=== PATIENT | male | born 1985 | race Caucasian/White ===

== ENCOUNTER 2017-08-13 18:07 | Emergency (ER) | payer OTHER, SELFPAY ==
[2017-08-13 18:09] VITALS: BP 157/93; PULSE 105; RESP 16; TEMP 37.1; O2SAT 98; BMI 36.9
[2017-08-13 18:28] LABS: Absolute Lymphocyte Count 3.05 X10^3/ul (0.83-4.51); Absolute Neutrophil Count 6.1 X10^3/uL (2.0-7.7); Basophil# 0.03 X10^3/uL; Basophil% 0.3 % (0-1); Hematocrit 44.2 % (40-54); Lymphocyte # 3.05 X10^3/ul (4.0); Mean Corp Hgb Conc 33.9 g/gl (32-36); Mean Corpuscular Hgb 30.4 pg (27.0-32.0); Mean Corpuscular Volume 89.5 fL (80-94); Mean Platelet Vol. 8.7 fl (6.2-12.0); Monocyte% 7.9 % (0-10); Neutrophil # 6.06 X10^3/uL (2.7-7.7); Neutrophil % 59.5 % (47-70); Platelet Count 343 K/mm3 (150-450); RBC Distribution Width SD 42.2 fl (35.1-43.9); Red Blood Count 4.94 M/mm3 (4.6-6.2); White Blood Count 10.2 K/mm3 (4.4-11.0)
[2017-08-13 18:29] LABS: POSITIVE COUNT NO; POSITIVE DIFFERENTIAL NO; POSITIVE MORPHOLOGY NO
[2017-08-13 18:39] LABS: Anion Gap 7 (5-15); BUN 16 mg/dL (7-18); BUN/Creat Ratio 14.2 RATIO (10-20); Calcium,Total 9.4 mg/dL (8.5-10.1); Chloride 103 mmol/L (98-107); Creatinine, Serum 1.13 mg/dL (0.70-1.30); EST Glomerular Filtration Rate 80 mL/min (>60); Est Glom Filt Rate - Afr Amer 97 mL/min (>60); Estimated Creatinine Clearance 107.04 ml/min; Glucose 110 mg/dL (74-106); Potassium 3.9 mmol/L (3.5-5.1); Sodium Level 138 mmol/L (136-145)
[2017-08-13 19:17] LABS: Amphetamine Urine VISTA NEGATIVE (<1000 ng/mL); Barbiturate Urine VISTA NEGATIVE (< 200 ng/mL); Benzodiazepine Urine VISTA NEGATIVE (< 200 ng/mL); Cocaine Urine VISTA NEGATIVE (< 300 ng/mL); Ecstacy Urine VISTA NEGATIVE (< 500 ng/mL); Methadone Urine VISTA NEGATIVE (< 300 ng/mL); PCP Urine VISTA NEGATIVE (< 25 ng/mL); THC Urine VISTA NEGATIVE (< 50 ng/mL); Vista UDS pH Range 6
[2017-08-13 19:24] VITALS: BP 142/85; PULSE 95; RESP 14; O2SAT 99
[2017-08-13 19:24] LABS: Alcohol, Blood (Medical)-Serum < 3.0 mg/dL
[2017-08-13 20:53] VITALS: BP 141/78; PULSE 93; RESP 14; O2SAT 99
[2017-08-13 21:04] VITALS: BP 148/78; PULSE 92; RESP 14; O2SAT 99
[2017-08-13 22:48] VITALS: BP 135/78; PULSE 95; RESP 14; O2SAT 99
[2017-08-13 23:28] VITALS: RESP 16
[2017-08-14 00:30] VITALS: RESP 16
--- NOTE | 2017-08-14 00:57 | ED.VISSUMM ---
- ER Visit Summary Date of Service: 08/14/17 Chief Complaint: [Suicidal ideations] History of Present Illness: The patient is a 31 M [who presents the emergency department with suicidal ideations. They started today. They are related to family and money. When pressed if some significant event happened he states that she just everything. He did call the crisis line who referred him to the emergency department. He states that he is suicidal but he did not have a plan. He was trying to think of one. He does have multiple suicide attempts in the past. The last one was in December when he tried to overdose on Paxil and cough medicine. He has not been on [place]al licks for the last month for his depression. He does smoke and uses marijuana.] Physical Examination: [] WN WD NAD PERRL EOMI MMM NECK supple and nontender, no masses RRR no murmur rub or gallop, no peripheral edema, symmetric radial pulses CTAB no respiratory distress ABDOMEN is soft and nontender, normal bowel sounds, no distension, no rebound or guarding SKIN is warm and dry no rashes Alert and Oriented x3, CN II-XII in tact, no motor or sensory deficits, gait normal No lymphadenopathy Flat affect endorsing suicidal ideations without clear plan. Poverty of speech no delusions agitation or flight of ideas no homicidal thoughts Test Results: [] Emergency Department Course and Treatment: [Medical clearance blood work was obtained and was unremarkable. Mental health was consulted to evaluate the patient in the emergency department. Disposition is pending mental health evaluation.] Treatment Plan: [] Disposition: [] Impression: [] This note was generated with [employer] dictation software. It may contain incorrect words, spelling, and punctuation that were not noted in review of the chart prior to signing ED Disposition - Plan for ED Patient: Chief Complaint: Suicidal Referrals: Trinidad Dickens MD [Primary Care Provider] -
[2017-08-14 02:32] VITALS: RESP 14
--- NOTE | 2017-08-14 02:48 | ED.DEP ---
ED Disposition - Plan for ED Patient: Disposition: Home or Assisted Living Chief Complaint: Suicidal Instructions: ED Depression Referrals: Trinidad Dickens MD [Primary Care Provider] - Additional Instructions: Please keep your appointment with the Crisis Counselor on Friday as scheduled. Keep your appointment with your therapist next week as scheduled. If you have any worsening of your condition or any new concerning symptoms, please return immediately to the emergency department for another evaluation.
[2017-08-14 03:36] VITALS: BP 124/71; PULSE 78; RESP 16; O2SAT 97
== END 2017-08-14 03:37 | disposition home or self-care (01) ==
PROVIDERS: Emergency Provider Emergency Medicine; Family Provider Family Medicine; PCP Family Medicine
DX: R45.851 Suicidal ideations (principal); F32.9 Major depressive disorder, single episode, unspecified; F12.90 Cannabis use, unspecified, uncomplicated; F17.200 Nicotine dependence, unspecified, uncomplicated; Z91.5 Personal history of self-harm
CPT/HCPCS: 36415; 80048; 80307; 80320; 85025; 99283; G0480

== ENCOUNTER → 2018-05-01 07:44 | Outpatient (CLI) | payer OTHER, SELFPAY ==
[2018-05-01 09:26] LABS: Absolute Lymphocyte Count 1.98 X10^3/ul (0.83-4.51); Absolute Neutrophil Count 3.4 X10^3/uL (2.0-7.7); Basophil# 0.03 X10^3/uL; Basophil% 0.5 % (0-1); Eosinophil# 0.24 X10^3/uL; Eosinophils% 3.8 % (0-5); Hematocrit 45.6 % (40-54); Hemoglobin 14.9 g/dl (13.0-16.5); Lymphocyte # 1.98 X10^3/ul (4.0); Lymphocyte % 31.7 % (19-41); Mean Corp Hgb Conc 32.7 g/gl (32-36); Mean Corpuscular Hgb 29.1 pg (27.0-32.0); Mean Corpuscular Volume 89.1 fL (80-94); Mean Platelet Vol. 10.3 fl (6.2-12.0); Monocyte# 0.62 X10^3/uL; Monocyte% 9.9 % (0-10); Neutrophil # 3.37 X10^3/uL (2.7-7.7); Neutrophil % 53.9 % (47-70); Platelet Count 347 K/mm3 (150-450); RBC Distribution Width CV 13.6 % (11.6-14.6); Red Blood Count 5.12 M/mm3 (4.6-6.2); White Blood Count 6.3 K/mm3 (4.4-11.0)
[2018-05-01 09:28] LABS: POSITIVE COUNT NO; POSITIVE DIFFERENTIAL NO; POSITIVE MORPHOLOGY NO
[2018-05-01 09:52] LABS: Hemoglobin A1c 5.2 % (4.2-6.3)
[2018-05-01 09:58] LABS: ALB/GLOB Ratio 1.1 RATIO (0.9-2.4); AST(SGOT) 21 U/L (15-37); Alanine Aminotransfer ALT/SGPT 41 U/L (16-61); Albumin, Serum 3.8 g/dL (3.2-5.0); Alkaline Phosphatase 95 U/L (45-117); Anion Gap 10 (5-15); BUN 16 mg/dL (7-18); BUN/Creat Ratio 15.7 RATIO (10-20); Calcium,Total 8.6 mg/dL (8.5-10.1); Chloride 104 mmol/L (98-107); Cholesterol 185 mg/dL (200); Creatinine, Serum 1.02 mg/dL (0.70-1.30); EST Glomerular Filtration Rate 90 mL/min (>60); Est Glom Filt Rate - Afr Amer 109 mL/min (>60); Globulin 3.6 g/dL (2.2-4.2); Glucose 94 mg/dL (74-106); High Density Lipoprotein 27 mg/dL; Protein, Total 7.4 g/dL (6.4-8.2); Sodium Level 139 mmol/L (136-145); Triglycerides 141 mg/dL; Very Low Density Lipoprotein 28 mg/dL (5-40)
== END ==
LOC: LAB 07:49
PROVIDERS: Family Provider Family Medicine; PCP Family Medicine; Referring Provider Family Medicine; Visit Provider Family Medicine
DX: E29.1 Testicular hypofunction (principal); E78.5 Hyperlipidemia, unspecified; F32.9 Major depressive disorder, single episode, unspecified; R73.01 Impaired fasting glucose
CPT/HCPCS: 36415; 80053; 80061; 83036; 84403; 84443; 85025

== ENCOUNTER → 2018-07-10 07:04 | Outpatient (CLI) | payer OTHER, SELFPAY ==
[2018-07-13 09:06] LABS: Testosterone, Free 6.51 ng/dL (5.00-21.00)
[2018-07-13 13:01] LABS: Testosterone, % Free 2.41 % (1.50-4.20); Testosterone, Total 270 ng/dL (264-916)
== END ==
PROVIDERS: Family Provider Family Medicine; PCP Family Medicine; Referring Provider Family Medicine; Visit Provider Family Medicine
DX: E29.1 Testicular hypofunction (principal)
CPT/HCPCS: 36415; 84402; 84403

== ENCOUNTER → 2018-08-10 09:42 | Outpatient (CLI) | payer OTHER, SELFPAY ==
[2018-08-10 13:08] LABS: Cholesterol 215 mg/dL (200); High Density Lipoprotein 25 mg/dL; Triglycerides 174 mg/dL; Very Low Density Lipoprotein 35 mg/dL (5-40)
== END ==
PROVIDERS: Family Provider Family Medicine; PCP Family Medicine; Visit Provider Family Medicine
DX: E78.5 Hyperlipidemia, unspecified (principal)
CPT/HCPCS: 36415; 80061